=== PATIENT | male | born 1995 | race Two or more races ===

== ENCOUNTER 2019-04-19 00:39 | Emergency (ER) | payer MEDICAID ==
[~2019-04-19] VITALS: Ht 182.9 cm; Wt 68.0 kg
[2019-04-19 00:39] VITALS: BP 148/79
[2019-04-19] MEDS ORDERED: LIDOCAINE 1%/EPI 1:100,000 20 ML VIAL. ONE (01:03)
--- NOTE | 2019-04-19 02:11 | PHYS DOC ---
Past Medical History Past Medical History: No Pertinent History Past Surgical History: No Surgical History Alcohol Use: None Drug Use: None Adult General Chief Complaint Chief Complaint: LACERATION/AVULSION [facility] HPI 23-year-old male presents to the emergency Department complaints of laceration. Patient states he is on a report lost his balance and threw his arms in the air hitting the chandelier. 3 separate lacerations one to 3 cm, second one 2 cm below that as well as a second one 2 cm in length below that. This all occurred on the proximal forearm. He denies any head injury or loss of consciousness. His last tetanus shot was in the last 5 years. All other ROS negative unless documented in HPI Review of Systems Review of Systems See Above Current Medications Current Medications Current Medications Medications (Trade) Dose Ordered Sig/[place] Start Time Stop Time Status Last Admin Dose Admin Lidocaine/ Epinephrine (LIDOCAINE 1%-EPI 1:100,000 Multi-Dose) 20 ml STK-MED ONCE 04/19/19 01:03 04/19/19 01:03 DC Allergies Allergies Allergies Coded Allergies Type Severity Reaction Last Updated Verified No Known Drug Allergies 04/19/19 No Physical Exam Physical Exam See Above Constitutional: Well developed, well nourished, no acute distress, non-toxic appearance. [] Cardiovascular:Heart rate regular rhythm, no murmur [] Lungs & Thorax: Bilateral breath sounds clear to auscultation [] Skin: 3cm laceration appreciated to left forearm, 2 cm laceration distal to that, and 2 cm laceration distal to that [] Neurologic: Alert and oriented X 3, no focal deficits noted. [] Psychologic: Affect normal, judgement normal, mood normal. [] Current Patient Data Vital Signs Vital Signs Date Time Temp Pulse Resp B/P (MAP) Pulse Ox O2 Delivery O2 Flow Rate FiO2 04/19/19 00:39 98.5 89 16 148/79 (102) 97 Room Air 98.5 EKG EKG [] Radiology/Procedures Radiology/Procedures [] Course & Med Decision Making Course & Med Decision Making Pertinent Labs and Imaging studies reviewed. (See chart for details) []23-year-old male presents to the emergency Department complaints of laceration. Patient states he is on a report lost his balance and threw his arms in the air hitting the chandelier. 3 separate lacerations one to 3 cm, second one 2 cm below that as well as a second one 2 cm in length below that. This all occurred on the proximal forearm. He denies any head injury or loss of consciousness. His last tetanus shot was in the last 5 years. Dragon Disclaimer Dragon Disclaimer This electronic medical record was generated, in whole or in part, using a voice recognition dictation system. Laceration Repair Lac Repair Indication: 3 separate lacerations appreciated Procedure: The patient was placed in the appropriate position and anesthesia around the 10ml 1 % lido wth epi. The area was then cleansed with hi biclins/copious irrigation with saline and iodine. The 3 cm laceration was repaired with 3 vicryl and 5 ethilon, the irst 2 cm laceration repaired with 2 vicryl, 4 ethilon, the second 2 cm laceration repaired with 2 vicryl and 3 ethilon. The wound area was then dressed Total repaired wound length: 3cm, 2cm, 2cm The patient tolerated the procedure well. Complications: None Departure Departure Impression: Primary Impression: Laceration of left upper arm Disposition: 01 HOME, SELF-CARE Condition: STABLE Referrals: NO PCP (PCP) Patient Instructions: Laceration Care, Adult, [id number] Additional Instructions: Recommend follow up with PCP 3 - 5 days Return to the ER with worsening symptoms, intractable pain, fever, altered mental status Tylenol/Motrin as needed for pain Tetanus shot initiated within last 5 years Suture removal 7 - 10 days Problem Qualifiers Primary Impression: Laceration of left upper arm Encounter type: initial encounter Qualified Codes: S41.112A - Laceration without foreign body of left upper arm, initial encounter ANGEL MITCHELL MD Apr 19, 2019 02:10
== END 2019-04-19 02:17 | disposition home or self-care (01) ==
LOC: ER 00:39
DX: S41.112A Laceration without foreign body of left upper arm, initial encounter (principal); W25.XXXA Contact with sharp glass, initial encounter; Y93.89 Activity, other specified; Y92.89 Other specified places as the place of occurrence of the external cause; Y99.8 Other external cause status
CPT/HCPCS: 12002; 99284

== ENCOUNTER 2019-04-22 14:58 | Emergency (ER) | payer MEDICAID ==
[~2019-04-22] VITALS: Ht 182.9 cm; Wt 68.0 kg
[2019-04-22 15:05] VITALS: BP 115/60
--- NOTE | 2019-04-22 15:59 | PHYS DOC ---
Past Medical History Past Medical History: No Pertinent History Past Surgical History: No Surgical History Alcohol Use: None Drug Use: None Adult General Chief Complaint Chief Complaint: WOUND CHECK HPI HPI Patient is a 23 year old male who presents for wound check on a laceration on the left forearm that was closed with stitches 4 days ago. Patient states today he was removing a sweatshirt when he dislodged a dry clot that started to bleed. Review of Systems Review of Systems Constitutional: Denies fever or chills [] Musculoskeletal: Denies back pain or joint pain [] Integument: Visit for wound check Neurologic: Denies headache, focal weakness or sensory changes [] All other systems were reviewed and found to be within normal limits, except as documented in this note. Allergies Allergies Allergies Coded Allergies Type Severity Reaction Last Updated Verified No Known Drug Allergies 04/19/19 No Physical Exam Physical Exam Constitutional: Well developed, well nourished, no acute distress, non-toxic appearance. [] Skin: Warm, dry, left forearm with approximately 3 different lacerations, the laceration of concern the scabbed over and has a dislodged blood clot on the exterior aspect of the laceration, we got the area weight and removed these superficial dried blood. All the lacerations are healing well.. Back: No tenderness, no CVA tenderness. [] Extremities: No tenderness, no cyanosis, no clubbing, ROM intact, no edema. [] Neurologic: Alert and oriented X 3, normal motor function, normal sensory function, no focal deficits noted. [] Psychologic: Affect normal, judgement normal, mood normal. [] EKG EKG [] Radiology/Procedures Radiology/Procedures [] Course & Med Decision Making Course & Med Decision Making Pertinent Labs and Imaging studies reviewed. (See chart for details) This is a 23-year-old male patient who presents to the ED today for wound check for laceration that was closed 4 days ago with stitches, patient is concerned he dislodged a dried blood clot from the laceration site that started bleeding. Patient has scabbed over blood clots over the laceration sites, we got to the area wet and removed the dried blood clot on the exterior laceration. Patient advised to apply Neosporin to the area twice a day. Instructed to return to the ED to get his stitches removed as scheduled Dragon Disclaimer Dragon Disclaimer This electronic medical record was generated, in whole or in part, using a voice recognition dictation system. Departure Departure Impression: Primary Impression: Wound of cheek Disposition: 01 HOME, SELF-CARE Condition: STABLE Referrals: NO PCP (PCP) follow up with the ER as scheduled to remove the stitches Patient Instructions: Laceration Care, Adult, [id number] Additional Instructions: Please keep your wound clean and dry. Return to the emergency room on the scheduled day which is 7 days from when the stitches were placed to have them removed. Please apply Neosporin to the laceration sites twice a day. Problem Qualifiers Primary Impression: Wound of cheek Encounter type: initial encounter Laterality: left Qualified Codes: S01.402A - Unspecified open wound of left cheek and temporomandibular area, initial encounter RICA MYRICK [employer] Apr 22, 2019 15:59
== END 2019-04-22 16:07 | disposition home or self-care (01) ==
LOC: ER 14:58
DX: S51.812D Laceration without foreign body of left forearm, subsequent encounter (principal); X58.XXXD Exposure to other specified factors, subsequent encounter
CPT/HCPCS: 99281

== ENCOUNTER 2019-04-28 12:56 | Emergency (ER) | payer MEDICAID | END 2019-04-28 14:15 | disposition left against medical advice (07) | LOC: ER 12:56 | DX: Z53.21 Procedure and treatment not carried out due to patient leaving prior to being seen by health care provider (principal) ==

== ENCOUNTER 2019-04-28 14:31 | Emergency (ER) | payer MEDICAID ==
[~2019-04-28] VITALS: Ht 182.9 cm; Wt 68.0 kg
[2019-04-28 14:40] VITALS: BP 119/64
--- NOTE | 2019-04-28 15:07 | PHYS DOC ---
Past Medical History Past Medical History: No Pertinent History Past Surgical History: No Surgical History Alcohol Use: None Drug Use: None Adult General Chief Complaint Chief Complaint: SUTURE/STAPLE REMOVAL HPI HPI Patient is a 23 year old male that presents for suture removal. Patient states that he was dancing and his arm against chandelier 10 days ago. He states he had sutures placed in his left forearm. He states that he has had no complications and just need the sutures removed. Review of Systems Review of Systems Constitutional: Denies fever or chills [] Eyes: Denies change in visual acuity, redness, or eye pain [] HENT: Denies nasal congestion or sore throat [] Respiratory: Denies cough or shortness of breath [] Cardiovascular: No additional information not addressed in HPI [] GI: Denies abdominal pain, nausea, vomiting, bloody stools or diarrhea [] : Denies dysuria or hematuria [] Musculoskeletal: Denies back pain or joint pain [] Integument: Reports sutures need taken out in left forearm. Neurologic: Denies headache, focal weakness or sensory changes [] Endocrine: Denies polyuria or polydipsia [] Complete systems were reviewed and found to be within normal limits, except as documented in this note. Allergies Allergies Allergies Coded Allergies Type Severity Reaction Last Updated Verified No Known Drug Allergies 04/19/19 No Physical Exam Physical Exam Constitutional: Well developed, well nourished, no acute distress, non-toxic appearance. [] HENT: Normocephalic, atraumatic, bilateral external ears normal, oropharynx moist, no oral exudates, nose normal. [] Eyes: PERRLA, EOMI, conjunctiva normal, no discharge. [] Neck: Normal range of motion, no tenderness, supple, no stridor. [] Cardiovascular:Heart rate regular rhythm, no murmur [] Lungs & Thorax: Bilateral breath sounds clear to auscultation [] Abdomen: Bowel sounds normal, soft, no tenderness, no masses, no pulsatile masses. [] Skin: healed lacerations to left forearm. Back: No tenderness, no CVA tenderness. [] Extremities: No tenderness, no cyanosis, no clubbing, ROM intact, no edema. [] Neurologic: Alert and oriented X 3, normal motor function, normal sensory function, no focal deficits noted. [] Psychologic: Affect normal, judgement normal, mood normal. [] EKG EKG [] Radiology/Procedures Radiology/Procedures [] Course & Med Decision Making Course & Med Decision Making Pertinent Labs and Imaging studies reviewed. (See chart for details) Will take sutures out in left forearm. Removed 13 sutures from left forearm. Wound is healing well. Dragon Disclaimer Dragon Disclaimer This electronic medical record was generated, in whole or in part, using a voice recognition dictation system. Departure Departure Impression: Primary Impression: Visit for suture removal Disposition: HOME, SELF-CARE Condition: STABLE Referrals: NO PCP (PCP) Patient Instructions: Suture Removal Additional Instructions: Thank you for visiting [facility]. We appreciate you trusting us with your care. If any additional problems come up don't hesitate to return to visit us. Please follow up with your primary care provider so they can plan additional care if needed and know about the problem that you had. If symptoms worsen come back to the Emergency Department. Any concerning symptoms that start such as chest pain, shortness of air, weakness or numbness on one side of the body, running high fevers or any other concerning symptoms return to the ER. IRMA COOK APRN Apr 28, 2019 15:07
== END 2019-04-28 15:12 | disposition home or self-care (01) ==
LOC: ER 14:31
DX: S51.812D Laceration without foreign body of left forearm, subsequent encounter (principal); W25.XXXD Contact with sharp glass, subsequent encounter
CPT/HCPCS: 99281